=== PATIENT | female | born 1965 | race Caucasian/White ===

== ENCOUNTER 2021-06-15 12:37 | Emergency (ER) | payer OTHER ==
[~2021-06-15] VITALS: Ht 165.1 cm; Wt 122.5 kg
[~2021-06-15 12:37] MED LIST: ASPIRIN325 PO; MAALOX ADVANCE770 ML PO; NITROGLYCERIN0.4 MG SL; ONDANSETRON ODT8 MG PO; PRILOSEC20 MG PO; SYNTHROID112 MCG PO; SYNTHROID75 MCG PO; VITAMIN D1000 UNI1 PO
[2021-06-15] MEDS ORDERED: TRAMADOL 50 MG50 MG PO ×2 (13:31→13:54)
[2021-06-15] MEDS ORDERED: IBUPROFEN 600600 M1 PO (13:54)
[2021-06-15] MEDS ORDERED: CRUTCHES MISCELL (14:10)
[2021-06-15] MEDS ORDERED: KNEE STABILIZE1 EACH MISCELL (14:10)
[2021-06-15 14:11] VITALS: BP 114/54
== END 2021-06-15 14:12 | disposition home or self-care (01) ==
LOC: M.ERS 12:37
DX: S92.355A Nondisplaced fracture of fifth metatarsal bone, left foot, initial encounter for closed fracture (principal); S93.402A Sprain of unspecified ligament of left ankle, initial encounter; E03.9 Hypothyroidism, unspecified; E78.5 Hyperlipidemia, unspecified; Z90.49 Acquired absence of other specified parts of digestive tract; Z98.890 Other specified postprocedural states; Z79.899 Other long term (current) drug therapy; Z88.6 Allergy status to analgesic agent; Z88.8 Allergy status to other drugs, medicaments and biological substances; X50.1XXA Overexertion from prolonged static or awkward postures, initial encounter; Y93.89 Activity, other specified; Y92.9 Unspecified place or not applicable; Y99.8 Other external cause status

== ENCOUNTER 2021-06-22 23:08 | Emergency (ER) | payer OTHER ==
[~2021-06-22] VITALS: Ht 157.5 cm; Wt 111.6 kg
[~2021-06-22 23:08] MED LIST changes: +CRUTCHES MISCELL; +IBUPROFEN 600600 M1 PO; +KNEE STABILIZE1 EACH MISCELL; +TRAMADOL 50 MG50 MG PO
[2021-06-23 00:42] VITALS: BP 146/81
== END 2021-06-23 00:42 | disposition home or self-care (01) ==
LOC: M.ERS 23:08
DX: S92.352D Displaced fracture of fifth metatarsal bone, left foot, subsequent encounter for fracture with routine healing (principal); E03.9 Hypothyroidism, unspecified; Z88.6 Allergy status to analgesic agent; Z88.5 Allergy status to narcotic agent; Z79.899 Other long term (current) drug therapy; X58.XXXD Exposure to other specified factors, subsequent encounter

== ENCOUNTER → 2021-07-04 | Outpatient (CLI) | payer OTHER | LOC: M.RAD 14:00 → EDBD 14:00 | PROVIDERS: ATTEND Orthopaedic Surgery | DX: S92.355A Nondisplaced fracture of fifth metatarsal bone, left foot, initial encounter for closed fracture (principal); X58.XXXA Exposure to other specified factors, initial encounter; Y93.89 Activity, other specified; Y92.89 Other specified places as the place of occurrence of the external cause; Y99.8 Other external cause status ==

== ENCOUNTER → 2021-07-30 | Outpatient (CLI) | payer OTHER | LOC: M.RAD 11:37 → EDBD 11:37 | PROVIDERS: ATTEND Orthopaedic Surgery | DX: M85.872 Other specified disorders of bone density and structure, left ankle and foot (principal); M79.672 Pain in left foot ==